=== PATIENT | male | born 1990 | race African-American/Black ===

== ENCOUNTER 2017-08-05 15:14 | Emergency (ER) | payer SELFPAY ==
[~2017-08-05] VITALS: Ht 167.6 cm; Wt 59.0 kg
[2017-08-05] MEDS ORDERED: HYDROCODONE/ACETAMINOPHEN 5/325MG TABLET PO ONE (18:45)
[2017-08-05] MEDS ORDERED: KETOROLAC 60MG/2ML VIAL IM ONE (18:45)
[2017-08-05 20:49] VITALS: BP 100/64
== END 2017-08-05 21:22 | disposition home or self-care (01) ==
LOC: ER 15:14
DX: S92.902A Unspecified fracture of left foot, initial encounter for closed fracture (principal); F12.10 Cannabis abuse, uncomplicated; Y08.89XA Assault by other specified means, initial encounter; Y93.89 Activity, other specified; Y92.89 Other specified places as the place of occurrence of the external cause; Y99.8 Other external cause status
CPT/HCPCS: 29515; 73600; 73630; 96372; 99284; J1885